=== PATIENT | male | born 1950 | race Caucasian/White ===

== ENCOUNTER 2019-10-15 11:49 | Emergency (ER) | payer MEDICARE ==
[~2019-10-15] VITALS: Ht 172.7 cm; Wt 77.7 kg
[2019-10-15] MEDS ORDERED: DILTIAZEM 5 MG/ML, 5ML IVPush STA (12:07)
[2019-10-15] MEDS ORDERED: DILTIAZEM 125 MG in SODIUM CHLORIDE 0.9% 100 ML IV SCH (12:07)
[2019-10-15] MEDS ORDERED: PROP150T2 PO (12:08)
[2019-10-15] MEDS ORDERED: ATOR40TA PO (12:08)
[2019-10-15] MEDS ORDERED: MULT-658 PO (12:08)
[2019-10-15] MEDS ORDERED: FENO134C PO (12:08)
[2019-10-15] MEDS ORDERED: OMEG1CAP23 PO (12:08)
[2019-10-15] MEDS ORDERED: GLUC-130 PO (12:08)
[2019-10-15] MEDS ORDERED: MELO7.5T31 PO (12:08)
[2019-10-15] MEDS ORDERED: LISI-167 PO (12:08)
[2019-10-15] MEDS ORDERED: RIVA20TA PO (12:08)
--- NOTE | 2019-10-15 12:35 | NUR ---
NOTIFIED OF BP 78/55, NS 500CC BOLUS HUNG. HOLD CARDIZEM FOR NOW.
[2019-10-15 12:42] LABS: BASOPHILS # (AUTO) 0.07 x10^3/uL (0-0.1); BASOPHILS % (AUTO) 1 % (0-1); EOSINOPHILS # (AUTO) 0.14 x10^3/uL (0-0.4); EOSINOPHILS % (AUTO) 1 % (1-7); LYMPHOCYTES # (AUTO) 4.14 x10^3/uL (1-3.4); LYMPHOCYTES % (AUTO) 41 % (22-44); MD NO; MEAN CORPUSCULAR HEMOGLOBIN 32.3 pg (27.5-34.5); MEAN CORPUSCULAR HGB CONC 33.3 g/dL (33.2-36.2); MEAN CORPUSCULAR VOLUME 96.9 fL (81-97); MEAN PLATELET VOLUME 8.6 fL (7.4-10.4); MONOCYTES # (AUTO) 0.41 x10^3/uL (0.2-0.8); MONOCYTES % (AUTO) 4 % (2-9); NEUTROPHILS # (AUTO) 5.26 x10^3/uL (1.8-6.8); NEUTROPHILS % (AUTO) 53 % (42-75); PLATELET COUNT 256 x10^3/uL (130-400); RED BLOOD COUNT 5.26 x10^6/uL (4.38-5.82); RED CELL DISTRIBUTION WIDTH 13.3 % (9.4-14.8)
[2019-10-15 12:49] LABS: ANION GAP 9 mmol/L (5-15); CALCIUM 9.1 mg/dL (8.5-10.1); CHLORIDE 107 mmol/L (98-107); CREATININE 1.45 mg/dL (0.7-1.3)
[2019-10-15 12:53] LABS: TROPONIN I < 0.015 ng/mL (0.000-0.045)
[2019-10-15] MEDS ORDERED: SODIUM CHLORIDE 0.9%, 500ML IVBOLUS ONE ×2 (13:00→14:00)
[2019-10-15 13:50] VITALS: BP 81/55
== END 2019-10-15 14:41 | disposition home or self-care (01) ==
LOC: ED 12:07
DX: I48.0 Paroxysmal atrial fibrillation (principal); I48.20 Chronic atrial fibrillation, unspecified; M19.90 Unspecified osteoarthritis, unspecified site
CPT/HCPCS: 36415; 71045; 80048; 82040; 84484; 85025; 93005; 96360; 99284; J7040